=== PATIENT | female | born 1970 | race Caucasian/White ===

== ENCOUNTER 2019-02-01 07:17 | Emergency (ER) | payer OTHER, MEDICAID ==
[2019-02-01 08:07] VITALS: BP 108/71; PULSE 80
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
== END 2019-02-01 11:45 | disposition home or self-care (01) ==
LOC: VM.ED 07:17
DX: S02.642A Fracture of ramus of left mandible, initial encounter for closed fracture (principal); F10.10 Alcohol abuse, uncomplicated; Z88.0 Allergy status to penicillin; Z79.899 Other long term (current) drug therapy; V47.6XXA Car passenger injured in collision with fixed or stationary object in traffic accident, initial encounter; Y92.410 Unspecified street and highway as the place of occurrence of the external cause
CPT/HCPCS: 70450; 70486; 71046; 72125; 99284-25